=== PATIENT | male | born 1995 | race Caucasian/White ===

== ENCOUNTER 2021-09-07 14:45 | Emergency (ER) | payer OTHER ==
[~2021-09-07] VITALS: Ht 177.8 cm; Wt 106.8 kg
[2021-09-07 15:41] VITALS: TEMP 98.1
[2021-09-07] MEDS ORDERED: CRUTCHES MC ×3 (16:34→17:56)
[2021-09-07 17:00] VITALS: BP 139/66; PULSE 62
== END 2021-09-07 17:00 | disposition home or self-care (01) ==
LOC: COL.ER 14:45
DX: S93.402A Sprain of unspecified ligament of left ankle, initial encounter (principal); X50.1XXA Overexertion from prolonged static or awkward postures, initial encounter; Y93.02 Activity, running; Y92.219 Unspecified school as the place of occurrence of the external cause

== ENCOUNTER → 2021-10-23 | Outpatient (CLI) | payer OTHER ==
[~2021-10-23] MED LIST: CRUTCHES MC
== END ==
LOC: MHCPAIN 10:28
DX: M47.816 Spondylosis without myelopathy or radiculopathy, lumbar region (principal); M53.3 Sacrococcygeal disorders, not elsewhere classified; M54.16 Radiculopathy, lumbar region
CPT/HCPCS: G0463

== ENCOUNTER → 2021-10-25 | Outpatient (CLI) | payer OTHER | LOC: MHCPAIN 08:00 | DX: M47.816 Spondylosis without myelopathy or radiculopathy, lumbar region (principal); M53.3 Sacrococcygeal disorders, not elsewhere classified; M54.16 Radiculopathy, lumbar region | CPT/HCPCS: J1100; Q9967 ==

== ENCOUNTER → 2021-11-07 | Outpatient (CLI) | payer OTHER | LOC: MHCPAIN 07:52 | DX: M47.816 Spondylosis without myelopathy or radiculopathy, lumbar region (principal); M53.3 Sacrococcygeal disorders, not elsewhere classified; M54.16 Radiculopathy, lumbar region | CPT/HCPCS: G0463 ==

== ENCOUNTER → 2021-11-27 | Outpatient (CLI) | payer OTHER | LOC: MHCPAIN 10:08 | DX: M47.896 Other spondylosis, lumbar region (principal); M53.3 Sacrococcygeal disorders, not elsewhere classified; M54.16 Radiculopathy, lumbar region | CPT/HCPCS: G0463 ==

== ENCOUNTER → 2022-01-21 | Outpatient (CLI) | payer OTHER | LOC: MHCPAIN 12:08 | DX: M53.3 Sacrococcygeal disorders, not elsewhere classified (principal); M47.816 Spondylosis without myelopathy or radiculopathy, lumbar region; M54.16 Radiculopathy, lumbar region | CPT/HCPCS: G0463; J1100; Q9967 ==

== ENCOUNTER → 2023-03-05 | Outpatient (CLI) | payer OTHER | LOC: MHCPAIN 09:31 | DX: M47.816 Spondylosis without myelopathy or radiculopathy, lumbar region (principal); M48.061 Spinal stenosis, lumbar region without neurogenic claudication; M54.50 Low back pain, unspecified | CPT/HCPCS: G0463 ==

== ENCOUNTER → 2023-05-28 | Outpatient (CLI) | payer OTHER | LOC: MHCPAIN 15:16 | DX: M47.816 Spondylosis without myelopathy or radiculopathy, lumbar region (principal); M48.061 Spinal stenosis, lumbar region without neurogenic claudication | CPT/HCPCS: G0463 ==

== ENCOUNTER → 2023-06-05 | Outpatient (CLI) | payer OTHER | LOC: MHCPAIN 08:46 | DX: M47.817 Spondylosis without myelopathy or radiculopathy, lumbosacral region (principal); M54.50 Low back pain, unspecified | CPT/HCPCS: J0665 ==

== ENCOUNTER → 2023-07-07 | Outpatient (CLI) | payer OTHER ==
[~2023-07-07] MED LIST changes: +Lidocaine PF 2% (20 MG/ML) 5 ML VIAL ONE; +Midazolam 2 MG/2 ML VIAL ONE; +fentaNYL 50 MCG/ML 2 ML VIAL ONE
== END ==
LOC: MHCPAIN 13:33
DX: M47.817 Spondylosis without myelopathy or radiculopathy, lumbosacral region (principal); M54.50 Low back pain, unspecified
CPT/HCPCS: J0665; J2250; J3010

== ENCOUNTER → 2023-09-03 | Outpatient (CLI) | payer OTHER ==
[~2023-09-03] MED LIST changes: -Lidocaine PF 2% (20 MG/ML) 5 ML VIAL ONE; -Midazolam 2 MG/2 ML VIAL ONE; -fentaNYL 50 MCG/ML 2 ML VIAL ONE
== END ==
LOC: MHCPAIN 14:55
DX: M54.16 Radiculopathy, lumbar region (principal); M47.896 Other spondylosis, lumbar region
CPT/HCPCS: G0463